=== PATIENT | male | born 1970 | race Caucasian/White ===

== ENCOUNTER 2019-09-22 09:58 | Emergency (ER) | payer BC ==
--- NOTE | 2019-09-22 10:36 | TELE ---
HPI Do you have fever,cough or shortness of breath?: No - General Reason For Visit: COVID 19 TESTING History Source: Patient - History of Present Illness 09/22/19 10:33 Patient is a 49-year-old male who participated in a telehealth virtual urgent care visit for routine COVID testing for upcoming travel. The patient denies any symptoms. He denies any fevers, shortness of breath, chest pain, cough, loss of taste or any other symptoms. He denies any past medical history or allergies to medications. He denies travel outside or within the [place] within the last 30 days. Review of Systems - Review of Systems Comments:: 09/22/19 10:34 - Review of Systems Able to Perform ROS?: Yes Constitutional: No: Fever, Chills, Loss of Appetite, Night Sweats, Weakness HEENTM: No: Eye Pain, Vision changes, Ear Pain, Throat Pain, Throat Swelling, Mouth Pain, Difficulty Swallowing Respiratory: No: Cough, Shortness of Breath, Wheezing, Sputum Production Cardiac (ROS): No: Chest Pain, Chest Tightness, Palpitations, Irregular Heart Beat, Edema ABD/GI: No: Nausea, Vomiting, Abdominal Pain, Diarrhea : No Dysuria, No Hematuria, No Frequency, No Urgency Musculoskeletal: No: Muscle Pain, Back Pain, Joint Pain, Muscle Weakness, Neck Pain Integumentary: No: Lesions, Rash Neurological: No: Headache, Numbness, Tingling, Weakness, Speech Difficulties *Physical Exam - Physical Exam 09/22/19 10:34 - Physical Exam General Appearance: Nourished, Appropriately Dressed, No Distress HEENT: EOMI, Normal Voice, Hearing Grossly Normal Neck: No Decreased range of motion Respiratory/Chest: Normal chest excursion appreciated, No Accessory Muscle Use Gastrointestinal/Abdominal: No distention Musculoskeletal: Normal Inspection Integumentary: Normal Color, Dry. 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 He denies any symptoms at this time. Plan: -COVID testing ordered and to be performed at the [facility] -COVID counseling performed and isolation precautions given -Patient understands and agrees with this treatment plan Discharge Diagnosis at time of Disposition: Counseled about COVID-19 virus infection - Referrals - Patient Instructions Discharge Instructions: [facility] Instructions, [facility] COVID-19 Isolation Protocol Additional Discharge Instructions: You were seen via a telehealth visit and tested for COVID today. You should follow isolation precautions as per [facility] guidelines. Thank you for participating in our telehealth medicine program. If you have any worsening symptoms such as high fever, shaking chills, profuse vomiting or any other worsening symptoms you should go to your local emergency department immediately or follow up with your primary care doctor immediately. Your results will become available within the next 24 to 48 hours. You will get a call with these results upon their availability.
== END 2019-09-22 11:34 | disposition home or self-care (01) ==
LOC: JVIRT 09:58
DX: Z11.59 Encounter for screening for other viral diseases (principal)
CPT/HCPCS: Q3014-GT; U0003

== ENCOUNTER 2022-10-08 20:30 | Observation (INO) | payer BC ==
[2022-10-08 20:39] VITALS: BMI 33.2
[2022-10-08 21:09] LABS: HEMATOCRIT 43.7 % (35.4-49); HEMOGLOBIN 15.1 G/dL (11.7-16.9); MCH 29.6 pg (25.7-33.7); MCHC 34.5 g/dl (32.0-35.9); MEAN PLT VOLUME 7.7 fl (7.5-11.1); PLATELET COUNT 191.3 10^3/uL (134-434); RBC 5.08 10^6/uL (4.00-5.60); RDW 14.6 % (11.9-15.9)
[2022-10-08] MEDS ORDERED: ASPIRIN 81 MG CHEWABLE TABLETS ONE (21:09)
[2022-10-08] MEDS ORDERED: ASPIRIN 81 MG CHEWABLE TABLETS PO ONE (21:09)
[2022-10-08 21:22] LABS: ALBUMIN 4.8 g/dl (3.4-5.0); BILIRUBIN,TOTAL 0.4 mg/dl (0.2-1); CALCIUM 9.5 mg/dl (8.5-10.1); CREATININE 1.3 mg/dl (0.6-1.3); MAGNESIUM 2.3 mg/dL (1.8-2.4); POTASSIUM 4.3 mmol/L (3.5-5.1); SGOT/AST 23.7 U/L (15-37); SGPT/ALT 32.8 U/L (7-52); TOT PROT 7.5 g/dl (6.4-8.2)
[2022-10-09] MEDS ORDERED: ACETAMINOPHEN 325 MG TABLET (FP) PO PRN (02:36)
[2022-10-09 07:47] LABS: BLOOD UREA NITROGEN 19.6 mg/dl (7-18); CALCIUM 9.2 mg/dl (8.5-10.1); CREATININE 1.2 mg/dl (0.6-1.3); MAGNESIUM 2.2 mg/dL (1.8-2.4); POTASSIUM 4.7 mmol/L (3.5-5.1)
[2022-10-09 10:17] LABS: HEMATOCRIT 41.5 % (35.4-49); MCH 28.6 pg (25.7-33.7); MCHC 33.7 g/dl (32.0-35.9); MEAN PLT VOLUME 8.9 fl (7.5-11.1); PLATELET COUNT 193 10^3/uL (134-434); RBC 4.88 M/mm3 (4.00-5.60); RDW 13.5 % (11.9-15.9); WHITE BLOOD COUNT 6.6 K/mm3 (4.0-10.0)
[2022-10-09] MEDS: ASPIRIN 81 MG CHEWABLE TABLETS PO SCH (11:34)
[2022-10-09 14:29] LABS: COCAINE, UR NEGATIVE (NEGATIVE); URINE AMPHETAMINES NEGATIVE (NEGATIVE)
[2022-10-09 14:30] LABS: OPIATES, URI NEGATIVE (NEGATIVE); PHENCYCLIDINE,URINE NEGATIVE (NEGATIVE)
[2022-10-09 14:31] LABS: METHADONE, UR NEGATIVE (NEGATIVE); URINE BARBITURATES NEGATIVE (NEGATIVE); URINE BENZODIAZEPINES NEGATIVE (NEGATIVE)
[2022-10-09] MEDS ORDERED: ROSUVASTATIN CA 10 MG TABLET PO SCH (22:00)
[2022-10-10 06:58] VITALS: RESP 18
[2022-10-10 08:15] LABS: ALBUMIN 4.3 g/dl (3.4-5.0); BILIRUBIN,TOTAL 0.4 mg/dl (0.2-1); BLOOD UREA NITROGEN 20.7 mg/dl (7-18); CALCIUM 9.2 mg/dl (8.5-10.1); CREATININE 1.1 mg/dl (0.6-1.3); POTASSIUM 4.5 mmol/L (3.5-5.1); SGPT/ALT 29.5 U/L (7-52); TOT PROT 6.8 g/dl (6.4-8.2)
[2022-10-10 09:42] LABS: HEMATOCRIT 43.5 % (35.4-49); MCH 28.7 pg (25.7-33.7); MCHC 34.4 g/dl (32.0-35.9); MEAN CELL VOLUME 83.5 fl (80-96); MEAN PLT VOLUME 8.5 fl (7.5-11.1); PLATELET COUNT 193 10^3/uL (134-434); RBC 5.21 M/mm3 (4.00-5.60); RDW 13.3 % (11.9-15.9); WHITE BLOOD COUNT 7.5 K/mm3 (4.0-10.0)
[2022-10-10 09:45] VITALS: BP 152/69; PULSE 67; TEMP 98
[2022-10-10] MEDS: ASPIRIN 81 MG CHEWABLE TABLETS PO SCH (10:21)
== END 2022-10-10 10:40 | disposition home or self-care (01) ==
LOC: FER 20:30 → FM/S 10-09 01:54
PROVIDERS: ADMIT Student in an Organized Health Care Education/Training Program
DX: G45.9 Transient cerebral ischemic attack, unspecified (principal); E78.00 Pure hypercholesterolemia, unspecified; R20.2 Paresthesia of skin; E66.8 Other obesity; Z68.33 Body mass index [BMI] 33.0-33.9, adult; Z87.891 Personal history of nicotine dependence; Z83.42 Family history of familial hypercholesterolemia
CPT/HCPCS: 36415; 70450-TC; 70551-TC; 71045-TC-FY; 71275-TC; 80048; 80053; 80061; 80307; 81003; 82550; 82553; 83036; 83735; 84439; 84443; 84484; 85027; 93005; 93306-TC; 93880-TC; 99285-25; G0378; Q9967

== ENCOUNTER 2023-05-23 17:39 | Emergency (ER) | payer OTHER, BC ==
[2023-05-23] MEDS ORDERED: dilTIAZem HCL 50 MG/10 ML - 10 ML VIAL IVPUSH ONE (18:06)
[2023-05-23 18:41] VITALS: RESP 18; BMI 34.0
[2023-05-23 19:58] VITALS: BP 118/74; PULSE 76; TEMP 99
== END 2023-05-23 19:59 | disposition home or self-care (01) ==
LOC: FER 17:39
DX: S09.90XA Unspecified injury of head, initial encounter (principal); W22.8XXA Striking against or struck by other objects, initial encounter; Y99.0 Civilian activity done for income or pay
CPT/HCPCS: 70450-TC; 99284-25